=== PATIENT | male | born 1985 | race Caucasian/White ===

== ENCOUNTER 2020-05-10 18:50 | Emergency (ER) | payer MEDICAID ==
[~2020-05-10] VITALS: Ht 170.2 cm; Wt 81.6 kg
[2020-05-10 18:58] VITALS: BP 140/87
--- NOTE | 2020-05-10 19:10 | NUR ---
PT MABULATED TO BED 6 WITH STEADY GAIT. UA COLLECTED.
[2020-05-10] MEDS ORDERED: KETOROLAC 30 MG/ML VIAL IVP ONE (19:20)
--- NOTE | 2020-05-10 19:31 | NUR ---
IV ESTABLISHED, LABS DRAWN AND GIVEN TO CARE ASST ALONG WITH UA
--- NOTE | 2020-05-10 19:37 | NUR ---
Ultrasound at bedside.
--- NOTE | 2020-05-10 19:38 | NUR ---
CONSENT SIGNED FOR CT WITH CONTRAST.
[2020-05-10 19:41] LABS: BASOPHILS % (AUTO) 0.4 % (0.0-2.0); EOSINOPHILS # (AUTO) 0.5 K/uL (0-0.4); EOSINOPHILS % (AUTO) 8.4 % (0.0-4.0); HEMATOCRIT 43.3 % (36-52); HEMOGLOBIN 14.5 g/dL (12.0-18.0); LYMPHOCYTES # (AUTO) 1.5 K/uL (2.0-11.5); LYMPHOCYTES % (AUTO) 25.4 % (20.5-51.1); MEAN CORPUSCULAR HEMOGLOBIN 28 pg (27-31); MEAN CORPUSCULAR HGB CONC 34 g/dL (33-37); MEAN CORPUSCULAR VOLUME 83.8 fL (80-94); MONOCYTES # (AUTO) 0.4 K/uL (0.8-1.0); MONOCYTES % (AUTO) 7.1 % (1.7-9.3); NEUTROPHILS # (AUTO) 3.5 K/uL (1.8-7.7); NEUTROPHILS % (AUTO) 58.7 % (42.2-75.2); PLATELET COUNT (AUTO) 253 K/uL (140-450); RED BLOOD CELL COUNT(AUTO) 5.17 MIL/uL (4.20-6.10); RED CELL DISTRIBUTION WIDTH 13.9 % (11.6-13.7); WHITE BLOOD COUNT (AUTO) 5.9 K/uL (4.8-10.8)
--- NOTE | 2020-05-10 19:44 | NUR ---
PT HAS BEEN HAVING RLQ PAIN RADIATING INTO R TESTICLE AND R LOWER BACK FOR 1 MONTH NOW. ABD TENDER UPON PALPATION, + NAUSEA, NO VOMITING OR DIARRHEA. DENIES PAIN WITH URINATION. PT DENIES ANY SWELLING TO TESTICLE. AFEBRILE, DECREASED APPETITE. RATES PAIN 10/10 SHARP, STABBING PAIN. NORMAL BM, LAST BM TODAY. BED IN LOWEST POSITION AND SIDERAIL UP X 1. NKA NO HX
[2020-05-10] MEDS ORDERED: MORPHINE SULFATE 4 MG/ML SYR IVP STA (19:48)
[2020-05-10 19:49] LABS: APPEARANCE,URINE CLEAR (CLEAR); BILIRUBIN,URINE NEGATIVE (NEGATIVE); BLOOD, URINE NEGATIVE (NEGATIVE); COLOR,URINE YELLOW (YELLOW); LEUKOCYTE ESTERASE ,URINE NEGATIVE (NEGATIVE); NITRITE, URINE NEGATIVE (NEGATIVE); UGLUCOSE NEGATIVE (NEGATIVE)
[2020-05-10 19:54] LABS: ANION GAP 13.4 (8-16); CREATININE 1.3 mg/dL (0.6-1.3); POTASSIUM 3.4 mmol/L (3.5-5.1); TOTAL BILIRUBIN 0.3 mg/dL (0.0-1.0)
--- NOTE | 2020-05-10 19:54 | NUR ---
US AT BEDSIDE.
--- NOTE | 2020-05-10 20:12 | NUR ---
PT TAKEN TO CT SCAN VIA WHEELCHAIR
--- NOTE | 2020-05-10 20:25 | NUR ---
PT RETURN FROM CT
--- NOTE | 2020-05-10 20:26 | NUR ---
PT STATES PAIN IS MUCH BETTER. RESTING COMFORTABLY AT THIS TIME.
--- NOTE | 2020-05-10 21:27 | NUR ---
PAIN STARTING TO INCREASE SOME, MD NOTIFIED. MD TO SEE PATIENT.
[2020-05-10 21:50] VITALS: BP 132/85
--- NOTE | 2020-05-10 21:51 | NUR ---
Patient discharged with v/s stable. Written and verbal after care instructions given and explained. Patient verbalized understanding. Ambulatory with steady gait. All questions addressed prior to discharge. Advised to follow up with PMD.
== END 2020-05-10 21:51 | disposition home or self-care (01) ==
LOC: MED 18:50
DX: N50.811 Right testicular pain (principal); R79.89 Other specified abnormal findings of blood chemistry; N43.3 Hydrocele, unspecified
CPT/HCPCS: 36415; 74177; 76870; 80053; 81003; 83690; 85025; 96374; 96375; 99285; J1885; J2270; Q0092; Q9967

== ENCOUNTER 2021-07-27 12:19 | Emergency (ER) | payer MEDICAID ==
[~2021-07-27] VITALS: Ht 170.2 cm; Wt 80.7 kg
[2021-07-27 12:54] VITALS: BP 135/79
--- NOTE | 2021-07-27 13:00 | NUR ---
36 Y/O MALE C/O ANXIETY FOR 1 HOUR AGO. PT REPORTS "FELT LIKE I WAS GONNA PASS OUT, MY VISION WAS WHITE, AND HAD TROUBLE BREATHING" PT DENIES ANY CURRENT PAIN OR SOB. MEDHX:DENIES NKA
[2021-07-27 17:14] LABS: BASOPHILS # (AUTO) 0.1 K/uL (0.00-0.22); BASOPHILS % (AUTO) 0.7 % (0.0-2.0); EOSINOPHILS % (AUTO) 0.3 % (0.0-4.0); HEMATOCRIT 45.7 % (36-52); HEMOGLOBIN 15.3 g/dL (12.0-18.0); LYMPHOCYTES # (AUTO) 1.6 K/uL (2.0-11.5); LYMPHOCYTES % (AUTO) 18.8 % (20.5-51.1); MEAN CORPUSCULAR HEMOGLOBIN 28 pg (27-31); MEAN CORPUSCULAR HGB CONC 34 g/dL (33-37); MEAN CORPUSCULAR VOLUME 84.1 fL (80-94); MONOCYTES # (AUTO) 0.4 K/uL (0.8-1.0); MONOCYTES % (AUTO) 4.3 % (1.7-9.3); NEUTROPHILS # (AUTO) 6.6 K/uL (1.8-7.7); NEUTROPHILS % (AUTO) 75.9 % (42.2-75.2); PLATELET COUNT (AUTO) 301 K/uL (140-450); RED BLOOD CELL COUNT(AUTO) 5.43 MIL/uL (4.20-6.10); RED CELL DISTRIBUTION WIDTH 14.1 % (11.6-13.7); WHITE BLOOD COUNT (AUTO) 8.7 K/uL (4.8-10.8)
[2021-07-27 17:35] LABS: ALBUMIN 4.5 g/dL (3.4-5.0); ANION GAP 13.2 (8-16); CREATININE 1.2 mg/dL (0.6-1.3); POTASSIUM 4.2 mmol/L (3.5-5.1); TOTAL BILIRUBIN 0.3 mg/dL (0.0-1.0)
[2021-07-27] MEDS ORDERED: ATA25 PO (18:01)
[2021-07-27] MEDS ORDERED: CEPH-588 PO (18:01)
[2021-07-27 18:18] VITALS: BP 138/61
--- NOTE | 2021-07-27 18:18 | NUR ---
Patient discharged with v/s stable. Written and verbal after care instructions given and explained. Patient alert, oriented and verbalized understanding of instructions. Ambulatory with steady gait. All questions addressed prior to discharge. ID band removed. Patient advised to follow up with PMD. Rx of ATARAX AND KEFLEX given. Patient educated on indication of medication including possible reaction and side effects. Opportunity to ask questions provided and answered.
== END 2021-07-27 18:18 | disposition home or self-care (01) ==
LOC: MED 12:19
DX: F41.9 Anxiety disorder, unspecified (principal); N39.0 Urinary tract infection, site not specified; Z91.010 Allergy to peanuts
CPT/HCPCS: 36415; 80053; 81002; 85025; 93005; 99284

== ENCOUNTER 2022-12-28 12:41 | Emergency (ER) | payer MEDICAID ==
[~2022-12-28] VITALS: Ht 167.6 cm; Wt 81.6 kg
[~2022-12-28 12:41] MED LIST: ATA25 PO; CEPH-588 PO
[2022-12-28 12:54] VITALS: BP 126/79
--- NOTE | 2022-12-28 13:10 | NUR ---
PT. TO BED 1 VIA W/C
[2022-12-28] MEDS ORDERED: KETOROLAC 30 MG/ML VIAL IM ONE (13:20)
[2022-12-28] MEDS ORDERED: CYCLOBENZAPRINE 10 MG TAB PO ONE (13:20)
--- NOTE | 2022-12-28 14:05 | NUR ---
FILI GIVEN TO ICT TEACHER.
[2022-12-28 14:15] LABS: APPEARANCE,URINE CLEAR (CLEAR); BILIRUBIN,URINE NEGATIVE (NEGATIVE); BLOOD, URINE NEGATIVE (NEGATIVE); COLOR,URINE YELLOW (YELLOW); LEUKOCYTE ESTERASE ,URINE NEGATIVE (NEGATIVE); NITRITE, URINE NEGATIVE (NEGATIVE); UGLUCOSE NEGATIVE (NEGATIVE)
[2022-12-28] MEDS ORDERED: NAPR-1704 PO (14:25)
[2022-12-28] MEDS ORDERED: CYCL-711 PO (14:25)
[2022-12-28] MEDS ORDERED: LID5T TP (14:25)
[2022-12-28 14:41] VITALS: BP 122/62
--- NOTE | 2022-12-28 14:42 | NUR ---
Patient discharged with v/s stable. Written and verbal after care instructions given. Patient alert, oriented and verbalized understanding of instructions. Ambulatory with steady gait. All questions addressed prior to discharge. ID band removed. Patient advised to follow up with PMD. Rx of FLEXERIL, LIDODERM 5%, NAPROSYN given. Patient educated on indication of medication including possible reaction and side effects. Opportunity to ask questions provided and answered.
== END 2022-12-28 14:41 | disposition home or self-care (01) ==
LOC: MED 12:41
DX: M62.830 Muscle spasm of back (principal); Z79.899 Other long term (current) drug therapy
CPT/HCPCS: 72110; 81003; 96372; 99284; J1885

== ENCOUNTER 2024-01-08 09:29 | Emergency (ER) | payer MEDICAID ==
[~2024-01-08] VITALS: Ht 167.6 cm; Wt 83.9 kg
[~2024-01-08 09:29] MED LIST changes: +CYCL-711 PO; +LID5T TP; +NAPR-1704 PO
[2024-01-08 09:35] VITALS: BP 128/83; PULSE 72; RESP 18; TEMP 99; O2SAT 98
[2024-01-08] MEDS ORDERED: IBUP-2213 PO (12:31)
[2024-01-08] MEDS: KETOROLAC 30 MG/ML VIAL IM ONE (12:35)
[2024-01-08 12:40] VITALS: BP 128/83; PULSE 72; RESP 18; TEMP 99; O2SAT 98
== END 2024-01-08 12:40 | disposition home or self-care (01) ==
LOC: MED 09:29
DX: S02.2XXA Fracture of nasal bones, initial encounter for closed fracture (principal); S60.221A Contusion of right hand, initial encounter; Z79.899 Other long term (current) drug therapy; Y04.0XXA Assault by unarmed brawl or fight, initial encounter; Y93.89 Activity, other specified; Y92.89 Other specified places as the place of occurrence of the external cause; Y99.8 Other external cause status
CPT/HCPCS: 70450; 70486; 73130; 99284